=== PATIENT | male | born 1995 | race African-American/Black ===

== ENCOUNTER 2017-12-24 20:24 | Emergency (ER) | payer SELFPAY ==
[~2017-12-24] VITALS: Ht 185.4 cm; Wt 93.0 kg
[2017-12-24 21:23] VITALS: Ht 185.4 cm; Wt 93.0 kg
[2017-12-24 21:38] LABS: BASOPHIL % 0.5 % (0-2); PLATELET COUNT 335 x10^3mcL (130-400)
[2017-12-24 21:39] LABS: RED CELL DISTRIBUTION WIDTH 16.6 % (11.5-14.5)
[2017-12-24 21:47] LABS: CALCIUM 8.7 mg/dL (8.5-10.1); CARBON DIOXIDE 28.9 mmol/L (21-32); CHLORIDE SERUM 101 mmol/L (98-107); GFR1 > 60 mL/min; GLUCOSE SERUM 108 mg/dL (74-106); POTASSIUM SERUM 3.3 mmol/L (3.5-5.1); SODIUM SERUM 138 mmol/L (136-145)
[2017-12-24 22:04] LABS: ALBUMIN 3.9 g/dL (3.4-5.0); ALKALINE PHOSPHATASE 99 U/L (46-116); AST/SGOT 382 U/L (15-37); BILIRUBIN TOTAL 0.7 mg/dL (0.20-1.00); TOTAL PROTEIN, SERUM 7.4 g/dL (6.4-8.2)
[2017-12-24 22:08] LABS: ALT/SGPT 1113 U/L (16-63)
[2017-12-25 01:23] LABS: AMPHETAMINE QUAL UR POSITIVE (See below)
[2017-12-25 02:01] VITALS: BP 121/70
== END 2017-12-25 02:01 | disposition home or self-care (01) ==
LOC: ED 20:24
PROVIDERS: Emergency Medicine
DX: T40.1X1A Poisoning by heroin, accidental (unintentional), initial encounter (principal); Y92.89 Other specified places as the place of occurrence of the external cause; F17.210 Nicotine dependence, cigarettes, uncomplicated
CPT/HCPCS: 36415; C1758; G0480

== ENCOUNTER 2018-01-02 21:40 | Emergency (ER) | payer SELFPAY ==
[~2018-01-02] VITALS: Ht 185.4 cm; Wt 95.3 kg
[2018-01-02 22:01] VITALS: Ht 185.4 cm; Wt 95.3 kg
[2018-01-03 02:00] VITALS: BP 127/72
== END 2018-01-03 02:00 | disposition home or self-care (01) ==
LOC: ED 21:40
DX: T40.1X1A Poisoning by heroin, accidental (unintentional), initial encounter (principal); F11.10 Opioid abuse, uncomplicated; Y92.89 Other specified places as the place of occurrence of the external cause
CPT/HCPCS: J7030